=== PATIENT | female | born 1995 ===

== ENCOUNTER 2022-08-09 01:00 | Inpatient (IN) | payer MEDICAID | END 2022-08-10 14:20 | disposition home or self-care (01) | DRG 807 | LOC: MW.OBCHECK 01:00 → MW.ZCENSUS 01:30 → OBSVTOIN 10:59 | PROVIDERS: ADMIT Obstetrics & Gynecology; ATTEND Obstetrics & Gynecology | PROC: 10E0XZZ Delivery of Products of Conception, External Approach (ICD-10-PCS; principal; 2022-08-09) | PROC: 10907ZC Drainage of Amniotic Fluid, Therapeutic from Products of Conception, Via Natural or Artificial Opening (ICD-10-PCS; 2022-08-09) | DX: O36.0130 Maternal care for anti-D [Rh] antibodies, third trimester, not applicable or unspecified (principal); Z37.0 Single live birth; Z3A.38 38 weeks gestation of pregnancy | CPT/HCPCS: 59025; 59409 ==